=== PATIENT | female | born 1990 | race Two or more races ===

== ENCOUNTER 2016-12-22 09:24 | Inpatient (IN) | payer BC, OTHER ==
[~2016-12-22] VITALS: Ht 160 cm; Wt 86.4 kg
[~2016-12-22 09:24] MED LIST: IBUP-1222 PO; LEVO1TAB30 PO; ONDA4TAB7 PO; OXYC1TAB7 PO; PREN1TAB56 PO
[2016-12-22] MEDS ORDERED: OXYTOCIN 30U/ 0.9% NaCL 500ML 500 ML IV PRN (09:45)
[2016-12-22] MEDS ORDERED: D5%-LACTATED RINGERS 1,000 ML IV SCH (09:45)
[2016-12-22] MEDS ORDERED: OXYTOCIN 30U/ 0.9% NaCL 500ML 500 ML IV ONE (09:45)
[2016-12-22] MEDS ORDERED: ONDANSETRON 2MG/ML, 2ML IVPush PRN (10:00)
[2016-12-22] MEDS ORDERED: FENTANYL PF 100 MCG/2ML IVPush PRN (10:00)
[2016-12-22] MEDS ORDERED: FENTANYL PF 100 MCG/2ML IV PRN (10:00)
[2016-12-22] MEDS ORDERED: TERBUTALINE 1 MG/ML, 1ML IVPush PRN (10:00)
[2016-12-22] MEDS ORDERED: CALCIUM CARBONATE 500 MG TAB.CHEW PO PRN ×2 (10:00→18:00)
[2016-12-22] MEDS ORDERED: PREN-3 PO (10:05)
[2016-12-22] MEDS: LACTATED RINGERS 1,000 ML IV SCH ×3 (10:15→18:41)
[2016-12-22] MEDS ORDERED: FENTANYL/BUPIV./NS/PF 250 ML EPIDCONT ONE (10:32)
[2016-12-22] MEDS ORDERED: FENTANYL PF 100 MCG/2ML ONE (10:32)
[2016-12-22] MEDS ORDERED: BUPIVACAINE 0.25% ONE (10:33)
[2016-12-22 10:36] LABS: HEMATOCRIT 30.6 % (34.6-47.8); HEMOGLOBIN 10.2 g/dL (11.7-16.4); WHITE BLOOD COUNT 8.9 x10^3/uL (3.4-10)
[2016-12-22] MEDS ORDERED: LIDOCAINE/PF 1.5%-EPI 1:200K, 30ML ONE (10:38)
[2016-12-22] MEDS ORDERED: NEWBORN KIT ONE (10:50)
[2016-12-22] MEDS ORDERED: OXYTOCIN 30U/ 0.9% NaCL 500ML 500 ML ONE ×2 (12:51→19:27)
[2016-12-22] MEDS ORDERED: MISOPROSTOL 200 MCG TABLET ONE (13:42)
[2016-12-22] MEDS ORDERED: LIDOCAINE 1%, 20ML ONE (13:42)
[2016-12-22 14:02] LABS: HIV 1&2 ANTIBODY SCREEN Nonreactive (Nonreactive); HIV-1 p24 ANTIGEN Nonreactive (Nonreactive)
[2016-12-22] MEDS ORDERED: OXYTOCIN 30U/ 0.9% NaCL 500ML 500 ML IV SCH (17:47)
[2016-12-22] MEDS: OXYTOCIN 30U/ 0.9% NaCL 500ML 500 ML IV SCH ×4 (17:47→22:05)
[2016-12-22] MEDS ORDERED: MISOPROSTOL 200 MCG TABLET PR PRN (18:00)
[2016-12-22] MEDS ORDERED: ONDANSETRON 2MG/ML, 2ML IV PRN (18:00)
[2016-12-22] MEDS ORDERED: DOCUSATE 100 MG CAPSULE PO PRN (18:00)
[2016-12-22] MEDS ORDERED: HYDROcodone/APAP 5/325 TABLET PO PRN ×2 (18:00)
[2016-12-22] MEDS ORDERED: ACETAMINOPHEN 325 MG TABLET PO PRN ×2 (18:00)
[2016-12-22] MEDS ORDERED: IBUPROFEN 600 MG TABLET ONE (20:13)
[2016-12-22] MEDS: IBUPROFEN 600 MG TABLET PO PRN (20:15)
[2016-12-22 20:30] VITALS: BP 112/70
[2016-12-23 00:26] VITALS: BP 114/72
[2016-12-23 04:30] VITALS: BP 121/72
[2016-12-23] MEDS: IBUPROFEN 600 MG TABLET PO PRN ×2 (05:31→11:34)
[2016-12-23 06:17] LABS: HEMATOCRIT 30.6 % (34.6-47.8); HEMOGLOBIN 10.3 g/dL (11.7-16.4); WHITE BLOOD COUNT 10.8 x10^3/uL (3.4-10)
[2016-12-23 08:00] VITALS: BP 103/65
[2016-12-23] MEDS ORDERED: PRENATAL VIT/IRON/FA 1 EACH TABLET PO SCH (09:00)
[2016-12-23 12:00] VITALS: BP 99/59
[2016-12-23 16:00] VITALS: BP 111/77
== END 2016-12-23 18:29 | disposition home or self-care (01) | DRG 775 ==
LOC: LDOP 09:24 → LDIP 10:03 → 2NW 20:32 → EDSTATUS 12-28 09:23
PROVIDERS: ADMIT Obstetrics & Gynecology; ATTEND Obstetrics & Gynecology
PROC: 10E0XZZ Delivery of Products of Conception, External Approach (ICD-10-PCS; principal; 2016-12-22)
PROC: 0KQM0ZZ Repair Perineum Muscle, Open Approach (ICD-10-PCS; 2016-12-22)
DX: O66.0 Obstructed labor due to shoulder dystocia (principal); D69.6 Thrombocytopenia, unspecified; O99.12 Other diseases of the blood and blood-forming organs and certain disorders involving the immune mechanism complicating childbirth; O63.0 Prolonged first stage (of labor); O70.1 Second degree perineal laceration during delivery; Z37.0 Single live birth; Z3A.39 39 weeks gestation of pregnancy; Z80.0 Family history of malignant neoplasm of digestive organs; Z90.49 Acquired absence of other specified parts of digestive tract
CPT/HCPCS: 36415; 82803; 85025; 86592; 86703; 86762; 86850; 86900; 87340; 87899; J3010; J3490; G0435; J2590; J7120